=== PATIENT | male | born 1995 | race Two or more races ===

== ENCOUNTER 2023-11-20 00:27 | Emergency (ER) | payer OTHER ==
[~2023-11-20] VITALS: Ht 177.8 cm; Wt 90.7 kg
[2023-11-20 01:44] LABS: BASOPHILS # (AUTO) 0.1 K/uL (0.0-0.2); BASOPHILS % (AUTO) 1.2 % (0.0-2.0); EOSINOPHILS # (AUTO) 0.1 K/uL (0.0-0.7); EOSINOPHILS % (AUTO) 1.3 % (0.0-6.0); HEMATOCRIT 37 % (39-51); LYMPHOCYTES # (AUTO) 2.2 K/uL (0.8-4.8); LYMPHOCYTES % (AUTO) 28.7 % (20.0-44.0); MEAN CORPUSCULAR HEMOGLOBIN 33 PG (26.0-33.0); MEAN CORPUSCULAR HGB CONC 35 g/dl (31.0-36.0); MEAN CORPUSCULAR VOLUME 94 fL (80-96); MONOCYTES # (AUTO) 0.9 K/uL (0.1-1.30); MONOCYTES % (AUTO) 11.6 % (2.0-12.0); NEUTROPHILS # (AUTO) 4.4 K/uL (1.8-8.9); NEUTROPHILS % (AUTO) 57.2 % (43.0-81.0); PLATELET COUNT (AUTO) 293 K/uL (150-450); RED BLOOD CELL COUNT(AUTO) 3.98 MIL/uL (4.5-6.0); RED CELL DISTRIBUTION WIDTH 13.4 % (11.5-15.0); WHITE BLOOD COUNT (AUTO) 7.6 K/uL (4.3-11.0)
[2023-11-20 02:11] LABS: ALANINE AMINOTRANSFERASE 34 U/L (12-78); ALBUMIN 3.8 g/dL (3.4-5.0); ALKALINE PHOSPHATASE 89 U/L (46-116); ASPARTATE AMINOTRANSFERASE 21 U/L (15-37); BILIRUBIN,DIRECT 0.2 mg/dL (0.0-0.2); BILIRUBIN,TOTAL 0.9 mg/dL (0.2-1.0); CALCIUM, SERUM 9.5 mg/dL (8.5-10.1); CARBON DIOXIDE 22 mmol/L (21-32); CHLORIDE 109 mmol/L (98-107); CREATININE 1.1 mg/dL (0.6-1.3); GLUCOSE 99 mg/dL (74-106); POTASSIUM 3.4 mmol/L (3.5-5.1); SODIUM SERUM 145 mmol/L (136-145); TOTAL PROTEIN, SERUM 6.7 g/dL (6.4-8.2); UREA NITROGEN, BLOOD 10 mg/dL (7-18)
[2023-11-20 02:12] LABS: ACETAMINOPHEN <10 ug/ml (10-30); ALCOHOL, BLOOD < 3 mg/dL (0-10); SALICYLATE < 2.3 mg/dL (2.8-20.0)
[2023-11-20 10:46] LABS: APPEARANCE,URINE CLEAR (CLEAR); BILIRUBIN,URINE 1+ (NEGATIVE); BLOOD, URINE NEGATIVE Ery/uL (NEGATIVE); COLOR,URINE DARK YELLOW (YELLOW); KETONES,URINE 1+ mg/dL (NEGATIVE); LEUKOCYTE ESTERASE ,URINE NEGATIVE (NEGATIVE); NITRITE, URINE NEGATIVE (NEGATIVE); PROTEIN,URINE TRACE mg/dl (NEGATIVE); UGLUCOSE NEGATIVE (NEGATIVE); UROBILINOGEN,URINE 0.2 EU/dL (0.2)
[2023-11-20 10:51] LABS: ADD URINE CULTURE NO; BACTERIA,URINE Rare /HPF (None Seen); RBC,URINE 0-2 /HPF (0-2); SQUAMOUS EPITHELIAL CELL,UR Moderate /HPF (None Seen); WBC,URINE 0-2 /HPF (0-3)
[2023-11-20 10:55] LABS: AMPHETAMINE, URINE POSITIVE (NEGATIVE); BARBITURATE, URINE NEGATIVE (NEGATIVE); BENZODIAZEPINE, URINE NEGATIVE (NEGATIVE); CANNABINOID, URINE NEGATIVE (NEGATIVE); COCCAINE, URINE NEGATIVE (NEGATIVE); OPIATE, URINE NEGATIVE (NEGATIVE); PHENCYCLIDINE SCREEN,URINE NEGATIVE (NEGATIVE)
[2023-11-20] MEDS: LamoTRIgine 25 MG TABLET PO SCH (14:08)
[2023-11-20] MEDS: ARIPIPRAZOLE 5 MG TABLET PO ONE (14:08)
[2023-11-20] MEDS ORDERED: ARIPIPRAZOLE 2 MG TABLET ONE (19:24)
[2023-11-20] MEDS ORDERED: OLANZAPINE 10 MG VIAL IM ONE (19:24)
[2023-11-20] MEDS ORDERED: LORAZEPAM INJ 2 MG/ML VIAL ONE (19:26)
[2023-11-20] MEDS: LORAZEPAM INJ 2 MG/ML VIAL IM ONE (19:40)
[2023-11-20] MEDS: OLANZAPINE 10 MG VIAL IM ONE (19:40)
[2023-11-20] MEDS: ARIPIPRAZOLE 5 MG TABLET PO SCH (21:00)
[2023-11-21 07:46] VITALS: TEMP 98.2
[2023-11-21] MEDS ORDERED: LORAZEPAM INJ 2 MG/ML VIAL ONE (13:03)
[2023-11-21] MEDS: LORAZEPAM INJ 2 MG/ML VIAL IM ONE (13:10)
[2023-11-21 14:36] VITALS: BP 126/71; O2SAT 99
== END 2023-11-21 16:30 ==
LOC: ER 00:29
DX: R44.0 Auditory hallucinations (principal); F84.0 Autistic disorder; F31.9 Bipolar disorder, unspecified; F41.9 Anxiety disorder, unspecified; F19.10 Other psychoactive substance abuse, uncomplicated; Z59.00 Homelessness unspecified; Z20.822 Contact with and (suspected) exposure to COVID-19
CPT/HCPCS: 99285; 96372 ×3; 85025; 80048; 80076; 81001; 36415; 87426; 80143; 80320; 80307; J2060 ×2; J3490; G0480

== ENCOUNTER 2024-12-06 23:29 | Emergency (ER) | payer OTHER, BC ==
[~2024-12-06] VITALS: Ht 180.3 cm; Wt 81.2 kg
[2024-12-06] MEDS ORDERED: IBUPROFEN 400 MG TABLET ONE (23:58)
[2024-12-06] MEDS ORDERED: ACETAMINOPHEN ES 500 MG TABLET ONE (23:58)
[2024-12-07] MEDS: IBUPROFEN 400 MG TABLET PO ONE (00:01)
[2024-12-07] MEDS: ACETAMINOPHEN ES 500 MG TABLET PO ONE (00:01)
[2024-12-07 04:05] VITALS: BP 132/80; TEMP 98.2; O2SAT 97
== END 2024-12-07 06:56 | disposition home or self-care (01) ==
LOC: ER 23:34
DX: M25.571 Pain in right ankle and joints of right foot (principal); M25.572 Pain in left ankle and joints of left foot; Z91.048 Other nonmedicinal substance allergy status; F84.0 Autistic disorder; F41.9 Anxiety disorder, unspecified
CPT/HCPCS: 73610-TC; 73630-TC